=== PATIENT | male | born 1980 | race Caucasian/White ===

== ENCOUNTER 2022-08-02 09:40 | Outpatient (CLI) | payer BC | END 2022-08-02 09:41 | disposition home or self-care (01) | LOC: CSHWCC 09:40 | PROVIDERS: ATTEND Nurse Practitioner Family | DX: S71.001D Unspecified open wound, right hip, subsequent encounter (principal); S91.001D Unspecified open wound, right ankle, subsequent encounter; R60.0 Localized edema ==

== ENCOUNTER 2022-08-06 12:48 | Outpatient (CLI) | payer BC | END 2022-08-06 12:49 | disposition home or self-care (01) | LOC: CSHWCC 12:48 | PROVIDERS: ATTEND Nurse Practitioner Family | DX: S71.001D Unspecified open wound, right hip, subsequent encounter (principal); S91.001D Unspecified open wound, right ankle, subsequent encounter; R60.0 Localized edema | CPT/HCPCS: 29581; 97605 ==

== ENCOUNTER 2022-08-09 08:22 | Outpatient (CLI) | payer BC | END 2022-08-09 08:23 | disposition home or self-care (01) | LOC: CSHWCC 08:22 | PROVIDERS: ATTEND Nurse Practitioner Family | DX: S71.001D Unspecified open wound, right hip, subsequent encounter (principal); S91.001D Unspecified open wound, right ankle, subsequent encounter; R60.0 Localized edema ==

== ENCOUNTER 2022-08-13 08:17 | Outpatient (CLI) | payer BC | END 2022-08-13 08:18 | disposition home or self-care (01) | LOC: CSHWCC 08:17 | PROVIDERS: ATTEND Nurse Practitioner Family | DX: M79.605 Pain in left leg (principal); M79.604 Pain in right leg ==

== ENCOUNTER 2022-08-17 09:12 | Outpatient (CLI) | payer BC | END 2022-08-17 09:13 | disposition home or self-care (01) | LOC: CSHWCC 09:12 | PROVIDERS: ATTEND Nurse Practitioner Family | DX: S71.001D Unspecified open wound, right hip, subsequent encounter (principal); S91.001D Unspecified open wound, right ankle, subsequent encounter; R60.0 Localized edema | CPT/HCPCS: 29581 ==

== ENCOUNTER 2022-08-20 10:07 | Outpatient (CLI) | payer BC | END 2022-08-20 10:08 | disposition home or self-care (01) | LOC: CSHWCC 10:07 | PROVIDERS: ATTEND Nurse Practitioner Family | DX: S71.001D Unspecified open wound, right hip, subsequent encounter (principal); S91.001D Unspecified open wound, right ankle, subsequent encounter; R60.0 Localized edema | CPT/HCPCS: 29581 ==

== ENCOUNTER 2022-08-23 10:53 | Outpatient (CLI) | payer BC | END 2022-08-23 10:54 | disposition home or self-care (01) | LOC: CSHWCC 10:53 | PROVIDERS: ATTEND Nurse Practitioner Family | DX: S71.001D Unspecified open wound, right hip, subsequent encounter (principal); S91.001D Unspecified open wound, right ankle, subsequent encounter; R60.0 Localized edema ==

== ENCOUNTER 2022-08-27 12:01 | Outpatient (CLI) | payer BC | END 2022-08-27 12:02 | disposition home or self-care (01) | LOC: CSHWCC 12:01 | PROVIDERS: ATTEND Nurse Practitioner Family | DX: S71.001D Unspecified open wound, right hip, subsequent encounter (principal) | CPT/HCPCS: 29581 ==

== ENCOUNTER 2022-08-30 10:45 | Outpatient (CLI) | payer BC | END 2022-08-30 10:46 | disposition home or self-care (01) | LOC: CSHWCC 10:45 | PROVIDERS: ATTEND Nurse Practitioner Family | DX: S71.001D Unspecified open wound, right hip, subsequent encounter (principal); S91.001D Unspecified open wound, right ankle, subsequent encounter | CPT/HCPCS: 29581 ==

== ENCOUNTER 2022-09-03 11:01 | Outpatient (CLI) | payer BC | END 2022-09-03 11:02 | disposition home or self-care (01) | LOC: CSHWCC 11:01 | PROVIDERS: ATTEND Nurse Practitioner Family | DX: S71.001D Unspecified open wound, right hip, subsequent encounter (principal); S91.001D Unspecified open wound, right ankle, subsequent encounter | CPT/HCPCS: 29581 ==

== ENCOUNTER 2022-09-17 10:54 | Outpatient (CLI) | payer BC | END 2022-09-17 10:55 | disposition home or self-care (01) | LOC: CSHWCC 10:54 | PROVIDERS: ATTEND Nurse Practitioner Family | DX: S71.001D Unspecified open wound, right hip, subsequent encounter (principal); S91.001D Unspecified open wound, right ankle, subsequent encounter; R60.0 Localized edema | CPT/HCPCS: 99213; G0463 ==